=== PATIENT | female | born 1960 | race African-American/Black ===

== ENCOUNTER 2018-05-27 14:26 | Emergency (ER) | payer MEDICAID ==
[~2018-05-27] VITALS: Ht 162.6 cm; Wt 55.0 kg
[2018-05-27 21:21] VITALS: BP 129/93
== END 2018-05-27 21:24 ==
LOC: ER 14:26
DX: K94.29 Other complications of gastrostomy (principal); R62.7 Adult failure to thrive; F20.9 Schizophrenia, unspecified; Z68.20 Body mass index [BMI] 20.0-20.9, adult; Y83.3 Surgical operation with formation of external stoma as the cause of abnormal reaction of the patient, or of later complication, without mention of misadventure at the time of the procedure; Y92.128 Other place in nursing home as the place of occurrence of the external cause
CPT/HCPCS: 43760; 43762; 74018; 99284

== ENCOUNTER 2019-04-15 18:05 | Inpatient (IN) | payer MEDICAID ==
[~2019-04-15] VITALS: Ht 152.4 cm; Wt 48.1 kg
[2019-04-15] MEDS ORDERED: OLANZAPINE 10 MG/VIAL IM ONE (19:15)
[2019-04-15 19:50] LABS: BASOPHILS % 0.4 % (0.0-2.0); CHLORIDE 105 mEq/L (98-107); EOSINOPHILS % 3.4 % (0.0-5.0); HEMATOCRIT. 39.8 % (36.0-48.0); HEMOGLOBIN. 13.3 g/dL (12.0-16.0); LYMPHOCYTES % 25.2 % (20.0-50.0); MEAN CORPUSCULAR HEMOGLOBIN 29.4 pg (28.0-32.0); MEAN CORPUSCULAR VOLUME 87.7 fL (81.0-99.0); MEAN PLATELET VOLUME 8.8 fl (7.4-10.4); MONOCYTES % 8.6 % (2.0-8.0); NEUTROPHILS % 62.4 % (40.0-76.0); PLATELET 260 x1000/uL (130-400); RED BLOOD CELL COUNT 4.54 mill/uL (4.2-5.4); RED CELL DISTRIBUTION WIDTH 12.9 % (11.6-14.6)
[2019-04-15 19:55] LABS: INR 1.1; PARTIAL THROMBOPLASTIN TIME 30.1 sec (23.4-31.0); PROTHROMBIN TIME 11.4 sec (9.6-11.0)
[2019-04-15 23:00] VITALS: BP 130/112
[2019-04-16] MEDS ORDERED: DOCUSATE SODIUM 100MG CAPSULE PO PRN
[2019-04-16] MEDS ORDERED: NA PHOS,M-B/NA PHOS,DI-BA ENEMA 118ML PR PRN
[2019-04-16] MEDS ORDERED: MORPHINE SULFATE 2 MG/ML CPJ (NOT FOR IM USE) IV PRN
[2019-04-16] MEDS ORDERED: CLONIDINE 0.1MG TABLET PO PRN
[2019-04-16] MEDS ORDERED: IPRATROPIUM/ALBUTEROL 0.5-3(2.5)MG/3ML NEB NEB PRN
[2019-04-16] MEDS ORDERED: DIPHENHYDRAMINE 50MG/ML VIAL IV PRN
[2019-04-16] MEDS ORDERED: ONDANSETRON HCL 4MG/2ML INJ IV PRN
[2019-04-16] MEDS ORDERED: HYDROCODONE/ACETAMINOPHEN 5/325MG TABLET PO PRN
[2019-04-16] MEDS ORDERED: MAGNESIUM/ALUMINUM HYDROXIDE/SIMETHICONE 30ML UDC PO PRN
[2019-04-16] MEDS ORDERED: GUAIFENESIN 200MG/10ML SUGAR FREE UDC PO PRN
[2019-04-16] MEDS ORDERED: ACETAMINOPHEN 325MG TABLET PO PRN
[2019-04-16 02:52] LABS: CHLORIDE 105 mEq/L (98-107)
[2019-04-16 04:00] VITALS: BP 122/78
[2019-04-16] MEDS ORDERED: LACT1CAP68 GT (06:59)
[2019-04-16] MEDS ORDERED: CHOL100044 GT (06:59)
[2019-04-16] MEDS ORDERED: MULT-230 GT (06:59)
[2019-04-16] MEDS ORDERED: DOCU50LI25 GT (06:59)
[2019-04-16] MEDS: ENOXAPARIN 40MG/0.4ML SYR SUBCUT SCH (09:30)
[2019-04-16 12:00] VITALS: BP 137/41
[2019-04-16 16:00] VITALS: BP 112/56
[2019-04-16] MEDS: DEXT 5%/0.45% NACL 1000ML 1,000 ML IV SCH (16:12)
[2019-04-16] MEDS: LORAZEPAM 2MG/ML CPJ IV PRN (18:20)
[2019-04-16 20:00] VITALS: BP 113/78
[2019-04-17] VITALS: BP 107/76
[2019-04-17 04:00] VITALS: BP 99/65
[2019-04-17] MEDS: DEXT 5%/0.45% NACL 1000ML 1,000 ML IV SCH ×2 (05:05→17:52)
[2019-04-17 08:00] VITALS: BP 120/93
[2019-04-17] MEDS: ENOXAPARIN 40MG/0.4ML SYR SUBCUT SCH (08:35)
[2019-04-17 12:00] VITALS: BP 135/82
[2019-04-17 16:00] VITALS: BP 122/98
[2019-04-17 20:00] VITALS: BP 149/88
[2019-04-18 04:00] VITALS: BP 125/86
[2019-04-18] MEDS: LORAZEPAM 2MG/ML CPJ IV PRN (05:58)
[2019-04-18] MEDS: DEXT 5%/0.45% NACL 1000ML 1,000 ML IV SCH (05:58)
[2019-04-18 06:23] LABS: BASOPHILS % 0.3 % (0.0-2.0); HEMATOCRIT. 41.2 % (36.0-48.0); HEMOGLOBIN. 13.3 g/dL (12.0-16.0); LYMPHOCYTES % 32.3 % (20.0-50.0); MEAN CORPUSCULAR HEMOGLOBIN 28.8 pg (28.0-32.0); MEAN CORPUSCULAR VOLUME 89.4 fL (81.0-99.0); MONOCYTES % 10.3 % (2.0-8.0); NEUTROPHILS % 54.1 % (40.0-76.0); PLATELET 287 x1000/uL (130-400); RED BLOOD CELL COUNT 4.61 mill/uL (4.2-5.4)
[2019-04-18 06:51] LABS: CHLORIDE 106 mEq/L (98-107)
[2019-04-18 08:00] VITALS: BP 116/96
[2019-04-18] MEDS: ENOXAPARIN 40MG/0.4ML SYR SUBCUT SCH (08:11)
[2019-04-18 12:00] VITALS: BP 116/91
[2019-04-18 13:12] VITALS: BP 116/91
[2019-04-18 16:00] VITALS: BP 139/83
== END 2019-04-18 18:42 | DRG 252 ==
LOC: ER 18:05 → 6EST 21:27 → EDBEDREQTM 21:30 → EDBEDREQ 21:30 → ENRESERV 22:03
PROVIDERS: ADMIT Internal Medicine; ATTEND Internal Medicine
DX: K94.23 Gastrostomy malfunction (principal); E46 Unspecified protein-calorie malnutrition; F03.90 Unspecified dementia, unspecified severity, without behavioral disturbance, psychotic disturbance, mood disturbance, and anxiety; D64.9 Anemia, unspecified; I10 Essential (primary) hypertension; K30 Functional dyspepsia; K59.00 Constipation, unspecified; Y83.8 Other surgical procedures as the cause of abnormal reaction of the patient, or of later complication, without mention of misadventure at the time of the procedure; F41.9 Anxiety disorder, unspecified; F25.9 Schizoaffective disorder, unspecified; Z68.20 Body mass index [BMI] 20.0-20.9, adult; Y92.89 Other specified places as the place of occurrence of the external cause
CPT/HCPCS: 36415; 80048; 85025; 93005; 96372; 99285; J1650; J2060; J3490

== ENCOUNTER 2019-05-17 09:56 | Inpatient (IN) | payer MEDICAID ==
[~2019-05-17] VITALS: Ht 157.5 cm; Wt 54.9 kg
[~2019-05-17 09:56] MED LIST: CHOL100044 GT; DOCU50LI25 GT; LACT1CAP68 GT; MULT-230 GT
[2019-05-17 12:35] LABS: BASOPHILS % 0.4 % (0.0-2.0); EOSINOPHILS % 1.4 % (0.0-5.0); HEMATOCRIT. 40.5 % (36.0-48.0); HEMOGLOBIN. 13.3 g/dL (12.0-16.0); LYMPHOCYTES % 15.7 % (20.0-50.0); MEAN CORPUSCULAR HEMOGLOBIN 29.2 pg (28.0-32.0); MEAN CORPUSCULAR VOLUME 88.6 fL (81.0-99.0); MEAN PLATELET VOLUME 8.8 fl (7.4-10.4); MONOCYTES % 6.5 % (2.0-8.0); PLATELET 308 x1000/uL (130-400); RED BLOOD CELL COUNT 4.57 mill/uL (4.2-5.4); RED CELL DISTRIBUTION WIDTH 13.2 % (11.6-14.6)
[2019-05-17 12:41] LABS: CHLORIDE 105 mEq/L (98-107)
[2019-05-17 13:26] LABS: INR 1.2
[2019-05-17] MEDS ORDERED: ONDANSETRON HCL 4MG/2ML INJ IV PRN (14:15)
[2019-05-17] MEDS ORDERED: ACETAMINOPHEN 650MG SUPP PR PRN (14:15)
[2019-05-17] MEDS: DEXT 5%/0.45% NACL 1000ML 1,000 ML IV SCH (15:01)
[2019-05-18 08:00] VITALS: BP_SYST 102; BP_SYST 110; BP_DIAS 62; BP_DIAS 77
[2019-05-18] MEDS: ENOXAPARIN 40MG/0.4ML SYR SUBCUT SCH (08:51)
[2019-05-18 12:00] VITALS: BP 112/60
[2019-05-18] MEDS: DEXT 5%/0.45% NACL 1000ML 1,000 ML IV SCH ×2 (16:51→20:20)
[2019-05-18 20:00] VITALS: BP 90/70
[2019-05-19] VITALS: BP 99/72
[2019-05-19 04:00] VITALS: BP 93/66
[2019-05-19 08:00] VITALS: BP 110/72
[2019-05-19] MEDS: ENOXAPARIN 40MG/0.4ML SYR SUBCUT SCH (09:59)
[2019-05-19] MEDS ORDERED: MIDAZOLAM HCL 5 MG/5 ML VIAL ONE (10:30)
[2019-05-19] MEDS ORDERED: PROPOFOL 200MG/20ML VIAL IV ONE (10:30)
[2019-05-19] MEDS ORDERED: SUCCINYLCHOLINE CHLORIDE 200MG/10ML IV ONE (10:31)
[2019-05-19 12:00] VITALS: BP 111/72
[2019-05-19 15:22] VITALS: BP 111/72
[2019-05-19 16:00] VITALS: BP 131/75
== END 2019-05-19 18:42 | DRG 252 ==
LOC: ER 09:56 → 6EST 18:06 → ENRESERV 05-18 04:45
PROVIDERS: ADMIT Hospitalist; ATTEND Hospitalist
PROC: 0DH63UZ Insertion of Feeding Device into Stomach, Percutaneous Approach (ICD-10-PCS; principal; 2019-05-17)
PROC: 0DP68UZ Removal of Feeding Device from Stomach, Via Natural or Artificial Opening Endoscopic (ICD-10-PCS; 2019-05-17)
DX: K94.23 Gastrostomy malfunction (principal); E46 Unspecified protein-calorie malnutrition; R13.10 Dysphagia, unspecified; F03.90 Unspecified dementia, unspecified severity, without behavioral disturbance, psychotic disturbance, mood disturbance, and anxiety; F25.9 Schizoaffective disorder, unspecified; D63.8 Anemia in other chronic diseases classified elsewhere; I10 Essential (primary) hypertension; K21.9 Gastro-esophageal reflux disease without esophagitis; J44.9 Chronic obstructive pulmonary disease, unspecified; Z68.22 Body mass index [BMI] 22.0-22.9, adult; Z79.899 Other long term (current) drug therapy; Y83.8 Other surgical procedures as the cause of abnormal reaction of the patient, or of later complication, without mention of misadventure at the time of the procedure; Y73.8 Miscellaneous gastroenterology and urology devices associated with adverse incidents, not elsewhere classified; Y92.89 Other specified places as the place of occurrence of the external cause
CPT/HCPCS: 36415; 80053; 85025; 99285; J0330; J1650; J2250; J2704

== ENCOUNTER 2019-09-17 10:16 | Inpatient (IN) | payer MEDICAID ==
[~2019-09-17] VITALS: Ht 162.6 cm; Wt 46.7 kg
[2019-09-17 11:42] LABS: BASOPHILS % 0.3 % (0.0-2.0); EOSINOPHILS % 0.2 % (0.0-5.0); HEMATOCRIT. 31.3 % (36.0-48.0); HEMOGLOBIN. 10.4 g/dL (12.0-16.0); LYMPHOCYTES % 12.5 % (20.0-50.0); MEAN CORPUSCULAR HEMOGLOBIN 28.3 pg (28.0-32.0); MEAN PLATELET VOLUME 9.4 fl (7.4-10.4); MONOCYTES % 10.2 % (2.0-8.0); NEUTROPHILS % 76.8 % (40.0-76.0); PLATELET 310 x1000/uL (130-400); RED BLOOD CELL COUNT 3.69 mill/uL (4.2-5.4); RED CELL DISTRIBUTION WIDTH 14.8 % (11.6-14.6)
[2019-09-17 11:50] LABS: INR 1.2; PROTHROMBIN TIME 12.9 sec (9.6-11.0)
[2019-09-17 11:55] LABS: CHLORIDE 98 mEq/L (98-107)
[2019-09-17 12:09] LABS: CLARITY URINE TURBID (CLEAR); COLOR URINE DK YELLOW (YELLOW); KETONES URINE NEGATIVE (NEGATIVE); LEUKOCYTE ESTERASE URINE 1+ (NEGATIVE); NITRITE URINE NEGATIVE (NEGATIVE); OCCULT BLOOD URINE 2+ (NEGATIVE); PROTEIN URINE 1+ (NEGATIVE); SPECIFIC GRAVITY URINE 1.024 (1.005-1.030)
[2019-09-17] MEDS ORDERED: VANCOMYCIN 1 G PREMIX 200 ML IV ONE (12:15)
[2019-09-17] MEDS ORDERED: PIPERACILLIN/TAZ 3.375G PREMIX 50 ML IV ONE (12:15)
[2019-09-17 15:27] VITALS: BP 128/90
[2019-09-17 15:47] VITALS: BP 128/90
[2019-09-17] MEDS ORDERED: GUAIFENESIN 200MG/10ML SUGAR FREE UDC GT PRN (17:15)
[2019-09-17] MEDS ORDERED: ACETAMINOPHEN 650MG/20.3ML UDC GT PRN (17:15)
[2019-09-17] MEDS ORDERED: ONDANSETRON HCL 4MG/2ML INJ IV PRN (17:15)
[2019-09-17] MEDS ORDERED: DIPHENHYDRAMINE 50MG/ML VIAL IV PRN (17:15)
[2019-09-17] MEDS ORDERED: CLONIDINE 0.1MG TABLET GT PRN (17:15)
[2019-09-17] MEDS: CEFTRIAXONE 1 G PREMIX 50 ML IV SCH (17:41)
[2019-09-17] MEDS: ENOXAPARIN 40MG/0.4ML SYR SUBCUT SCH (17:41)
[2019-09-17] MEDS: DEXT 5%/0.9% NACL 1,000 ML IV SCH (17:41)
[2019-09-17] MEDS ORDERED: CEFTRIAXONE 1 G PREMIX 50 ML IV SCH (18:00)
[2019-09-17] MEDS: ACETAMINOPHEN 650MG/20.3ML UDC GT PRN (18:21)
[2019-09-17 20:00] VITALS: BP 104/79
[2019-09-17 20:30] VITALS: BP 104/79
[2019-09-17] MEDS: AZITHROMYCIN 500 MG in DEXT 5% WATER 250 ML IV SCH (20:37)
[2019-09-17 22:00] VITALS: BP 104/79
[2019-09-18] VITALS: BP 116/72
[2019-09-18 04:00] VITALS: BP 108/73
[2019-09-18 08:21] VITALS: BP 108/66
[2019-09-18 12:30] VITALS: BP 116/74
[2019-09-18 16:30] VITALS: BP 112/70
[2019-09-18 16:30] LABS: CHLORIDE 101 mEq/L (98-107)
[2019-09-18] MEDS: DEXT 5%/0.9% NACL 1,000 ML IV SCH (18:44)
[2019-09-18] MEDS: ENOXAPARIN 40MG/0.4ML SYR SUBCUT SCH (18:48)
[2019-09-18] MEDS: CEFTRIAXONE 1 G PREMIX 50 ML IV SCH (18:49)
[2019-09-18 19:14] LABS: HEPATITIS B SURFACE ANTIGEN NEGATIVE
[2019-09-18 19:43] LABS: HEPATITIS A AB IGM NEGATIVE (NEGATIVE)
[2019-09-18 20:00] VITALS: BP_SYST 116; BP_SYST 16; BP_DIAS 74
[2019-09-18] MEDS: AZITHROMYCIN 500 MG in DEXT 5% WATER 250 ML IV SCH (22:06)
[2019-09-19] VITALS: BP 106/65
[2019-09-19] MEDS: ACETAMINOPHEN 650MG/20.3ML UDC GT PRN (02:52)
[2019-09-19 04:00] VITALS: BP 92/59
[2019-09-19 06:38] LABS: BASOPHILS % 0.5 % (0.0-2.0); EOSINOPHILS % 0.4 % (0.0-5.0); HEMATOCRIT. 26.3 % (36.0-48.0); HEMOGLOBIN. 8.7 g/dL (12.0-16.0); LYMPHOCYTES % 17.6 % (20.0-50.0); MEAN CORPUSCULAR VOLUME 84.9 fL (81.0-99.0); MEAN PLATELET VOLUME 9.4 fl (7.4-10.4); MONOCYTES % 8.4 % (2.0-8.0); NEUTROPHILS % 73.1 % (40.0-76.0); PLATELET 255 x1000/uL (130-400); RED CELL DISTRIBUTION WIDTH 14.7 % (11.6-14.6)
[2019-09-19 07:26] LABS: CHLORIDE 106 mEq/L (98-107)
[2019-09-19 07:41] LABS: PHOSPHORUS 3.7 mg/dL (2.5-4.9)
[2019-09-19 08:14] VITALS: BP 103/61
[2019-09-19] MEDS: DEXT 5%/0.9% NACL 1,000 ML IV SCH (10:00)
[2019-09-19 11:49] VITALS: BP 134/75
[2019-09-19] MEDS ORDERED: HALOPERIDOL LACTATE 5MG/ML VIAL IM PRN (13:45)
[2019-09-19] MEDS: SULFAMETHOXAZOLE/TRIMETHOPRIM 800/160MG TABLET GT SCH ×2 (14:54→22:51)
[2019-09-19 16:01] VITALS: BP 139/83
[2019-09-19] MEDS: ENOXAPARIN 40MG/0.4ML SYR SUBCUT SCH (16:51)
[2019-09-19 20:00] VITALS: BP 123/72
[2019-09-19] MEDS ORDERED: IOHEXOL-300 100 ML BOTTLE ONE (21:57)
[2019-09-19] MEDS: QUETIAPINE FUMARATE 50MG TABLET GT SCH (22:50)
[2019-09-20] VITALS: BP 106/58
[2019-09-20 07:23] LABS: FERRITIN 1349 ng/mL (10-291)
[2019-09-20] MEDS: DEXT 5%/0.9% NACL 1,000 ML IV SCH (07:42)
[2019-09-20 07:59] LABS: CHLORIDE 103 mEq/L (98-107)
[2019-09-20 08:00] VITALS: BP 105/69
[2019-09-20 08:13] LABS: TOTAL IRON BINDING CAPACITY 236 ug/dL (250-450)
[2019-09-20 08:15] LABS: HEMATOCRIT. 28.4 % (36.0-48.0); HEMOGLOBIN. 9.3 g/dL (12.0-16.0); MEAN CORPUSCULAR HEMOGLOBIN 28.1 pg (28.0-32.0); MEAN CORPUSCULAR VOLUME 85.8 fL (81.0-99.0); RED BLOOD CELL COUNT 3.31 mill/uL (4.2-5.4); RED CELL DISTRIBUTION WIDTH 15.1 % (11.6-14.6)
[2019-09-20] MEDS: SULFAMETHOXAZOLE/TRIMETHOPRIM 800/160MG TABLET GT SCH ×2 (09:47→20:55)
[2019-09-20] MEDS: QUETIAPINE FUMARATE 50MG TABLET GT SCH ×2 (09:47→20:53)
[2019-09-20 11:59] VITALS: BP 102/67
[2019-09-20 14:21] LABS: FOLIC ACID (FOLATE) SERUM >20 ng/mL ng/mL (>5.38)
[2019-09-20 14:33] LABS: PLATELET 270 x1000/uL (130-400)
[2019-09-20 14:37] LABS: PLATELET ESTIMATE NORMAL
[2019-09-20 15:04] LABS: VITAMIN B12 SERUM >2000 pg/mL pg/mL (211-911)
[2019-09-20 15:31] VITALS: BP 105/69
[2019-09-20 20:00] VITALS: BP 128/80
[2019-09-21] VITALS: BP 123/75
[2019-09-21 04:00] VITALS: BP 124/72
[2019-09-21 08:00] VITALS: BP 97/68
[2019-09-21] MEDS: SULFAMETHOXAZOLE/TRIMETHOPRIM 800/160MG TABLET GT SCH (08:26)
[2019-09-21] MEDS: QUETIAPINE FUMARATE 50MG TABLET GT SCH (08:26)
[2019-09-21 12:00] VITALS: BP 113/74
[2019-09-21 13:06] VITALS: BP 113/74
[2019-10-10] MEDS ORDERED: ACET160S PO (04:45)
== END 2019-09-21 16:20 | DRG 720 ==
LOC: ER 10:16 → MICUSO 12:09 → EDBEDREQTM 12:10 → EDBEDREQ 12:10 → EDBEDREQSVC 12:10 → 7WST 16:00 → 6WST 23:09
PROVIDERS: ADMIT Internal Medicine; ATTEND Internal Medicine
DX: A41.9 Sepsis, unspecified organism (principal); K72.00 Acute and subacute hepatic failure without coma; E43 Unspecified severe protein-calorie malnutrition; C78.7 Secondary malignant neoplasm of liver and intrahepatic bile duct; C79.51 Secondary malignant neoplasm of bone; C80.1 Malignant (primary) neoplasm, unspecified; D64.9 Anemia, unspecified; E46 Unspecified protein-calorie malnutrition; F03.90 Unspecified dementia, unspecified severity, without behavioral disturbance, psychotic disturbance, mood disturbance, and anxiety; F25.9 Schizoaffective disorder, unspecified; Z93.1 Gastrostomy status; D72.810 Lymphocytopenia; I10 Essential (primary) hypertension; Z20.828 Contact with and (suspected) exposure to other viral communicable diseases; J44.9 Chronic obstructive pulmonary disease, unspecified; N39.0 Urinary tract infection, site not specified; K21.9 Gastro-esophageal reflux disease without esophagitis; Z79.899 Other long term (current) drug therapy; Z86.73 Personal history of transient ischemic attack (TIA), and cerebral infarction without residual deficits; Z68.1 Body mass index [BMI] 19.9 or less, adult
CPT/HCPCS: 36415; 71045; 74177; 76700; 80053; 80076; 81003; 82105; 82248; 82378; 82607; 82728; 82746; 83540; 83550; 83605; 83735; 84100; 84145; 84484; 85025; 86301; 86705; 86709; 86803; 87077; 87340; 87804; 93005; 99285; J0456; J0696; J1630; J1650; J2543; J3370; J7042; J7060; Q9967; U0003-CS